=== PATIENT | female | born 1975 | race Two or more races ===

== ENCOUNTER → 2021-04-19 09:44 | Outpatient (CLI) | payer OTHER | END | disposition home or self-care (01) | LOC: RAD 09:44 | PROVIDERS: ATTEND Surgery | DX: K59.09 Other constipation (principal) ==

== ENCOUNTER 2023-03-18 11:58 | Outpatient (CLI) | payer OTHER | END 2023-03-18 12:07 | disposition home or self-care (01) | LOC: RX STUDY 11:58 | PROVIDERS: ATTEND Surgery | DX: K59.00 Constipation, unspecified (principal) ==

== ENCOUNTER 2023-05-07 08:25 | Outpatient (CLI) | payer OTHER | END 2023-05-07 08:30 | disposition home or self-care (01) | LOC: RX STUDY 08:25 | PROVIDERS: ATTEND Surgery | DX: K59.00 Constipation, unspecified (principal) ==